=== PATIENT | female | born 1965 | race Caucasian/White ===

== ENCOUNTER 2016-07-25 13:03 | Inpatient (IN) | payer OTHER ==
[~2016-07-25] VITALS: Ht 157.5 cm; Wt 59.8 kg
[2016-08-08] MEDS ORDERED: HYDR-3516 PO (10:16)
[2016-08-08] MEDS ORDERED: VITA100T15 PO (10:16)
[2016-08-08] MEDS ORDERED: CHEL50TA PO (10:16)
[2016-08-08] MEDS ORDERED: SELE50TA PO (10:16)
[2016-08-08] MEDS ORDERED: CAL-500T PO (10:16)
[2016-08-08] MEDS ORDERED: TARTCAP PO (10:16)
[2016-08-08] MEDS ORDERED: ATEN25TA PO (10:16)
[2016-08-08] MEDS ORDERED: OMEG100010 PO (10:16)
[2016-08-08] MEDS ORDERED: PYRI1TAB2 PO (10:16)
[2016-08-08] MEDS ORDERED: FOLI1TAB4 PO (10:16)
[2016-08-08] MEDS ORDERED: OXYC1TAB63 PO (10:16)
[2016-08-08] MEDS ORDERED: VITA10003 PO (10:16)
[2016-08-15 07:43] VITALS: BP 122/75; PULSE 75; RESP 16; TEMP 98.1; O2SAT 100
[2016-08-15] MEDS ORDERED: SUGAMMADEX SODIUM 200 MG/2 ML VIAL IV PUSH ONE ×2 (07:47)
[2016-08-15] MEDS ORDERED: ACETAMINOPHEN 1000 MG/100 ML VIAL IV ONE (07:47)
[2016-08-15] MEDS ORDERED: LACTATED RINGER'S 1000 ML INJ 1,000 ML ONE (08:03)
--- NOTE | 2016-08-15 08:13 | PD.HP.UP ---
H&P Update Note The Pre-Admit History and Physical Examination regarding the above named patient was reviewed (including, but not limited to, vital signs, heart, lungs, co-morbid conditions), and upon re-examination it is noted that: the patient's condition has not significantly changed since the last examination. Guadalupe Mcghee MD Aug 15, 2016 08:13
[2016-08-15] MEDS ORDERED: ceFAZolin INJ 1,000 MG VIAL ONE (08:15)
[2016-08-15] MEDS ORDERED: metroNIDAZOLE 500 MG INJ 100 ML IV ONE (08:15)
[2016-08-15] MEDS ORDERED: ePHEDrine/NS 25 MG/5 ML SYR IV ONE (08:16)
[2016-08-15] MEDS ORDERED: PROPOFOL 200 MG/20 ML AMP IV ONE (08:16)
[2016-08-15] MEDS ORDERED: LACTATED RINGER'S 1000 ML INJ 1,000 ML IV ONE (08:17)
[2016-08-15] MEDS ORDERED: NORMOSOL R INJ 1,000 ML IV ONE (08:17)
[2016-08-15] MEDS ORDERED: ONDANSETRON HCL 4 MG/2 ML VIAL IV PUSH ONE (08:17)
[2016-08-15] MEDS ORDERED: APREPITANT 40 MG CAP ONE (08:20)
[2016-08-15] MEDS ORDERED: FAMOTIDINE 20 MG/2 ML VIAL ONE (08:20)
[2016-08-15] MEDS ORDERED: HYDROmorphone HCL PF 2 MG/ML VIAL ONE (08:20)
[2016-08-15] MEDS ORDERED: ceFAZolin INJ 1,000 MG VIAL IV ONE ×2 (08:50→12:50)
--- NOTE | 2016-08-15 09:27 | PD.OP ---
Operative Report Date of Surgery: Aug 15, 2016 Preoperative Diagnosis: Rectal Cancer Postoperative Diagnosis: Same Procedure: Cystoscopy and bilateral ureteral catheter placement Anesthesia: Gen. endotracheal tube Surgeon: Abdon Osman Cash Posting Clerk(s): None Resident Surgeon: None Operation and Findings: Patient was brought to the operating room and inform us of the Miriam Cotton. 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 22 Slovak cystoscope was inserted in bladder klein cystoscopy did not reveal any abnormalities. Left ureteral orifice was identified and a 5 Slovak open-ended catheter inserted into the left ureteral orifice without difficulty. This was again repeated on the right side. A 16 Slovak Ryan was then inserted the catheters were attached to the Ryan catheter. She tolerated the procedure well. Abdon Osman DO Aug 15, 2016 09:27
[2016-08-15] MEDS ORDERED: DO NOT ADM ANY ANTICOAGULANT DRUGS XX PRN (14:25)
[2016-08-15] MEDS ORDERED: POTASSIUM CHLOR 20 MEQ PREMIX 100 ML IV PRN (14:30)
[2016-08-15] MEDS ORDERED: ENALAPRILAT 2.5 MG/2 ML VIAL IV PRN (14:30)
[2016-08-15] MEDS ORDERED: ENALAPRILAT 1.25 MG/ML VIAL IV PRN (14:30)
[2016-08-15] MEDS ORDERED: NALOXONE HCL 0.4 MG/ML AMP IV PRN (14:30)
[2016-08-15] MEDS ORDERED: ONDANSETRON HCL 4 MG/2 ML VIAL IV PRN (14:30)
[2016-08-15] MEDS ORDERED: SODIUM CHLORIDE 0.9% FLUSH 5 ML FLUSH IVF PRN (14:30)
[2016-08-15] MEDS ORDERED: *morphine SULFATE 8 MG/ML PERIprocedure ONLY ONE (14:30)
[2016-08-15] MEDS ORDERED: POTASSIUM CHLOR 40 MEQ PREMIX 100 ML IV PRN (14:30)
[2016-08-15] MEDS ORDERED: ACETAMINOPHEN 325 MG TAB PO PRN (14:30)
[2016-08-15] MEDS ORDERED: BENZOCAINE 6 MG/MENTHOL 10 MG LOZENGE SUCK-ON PRN (14:30)
[2016-08-15] MEDS ORDERED: Post-op Orders (for Pharmacy) MISC XX ONE (14:30)
[2016-08-15] MEDS ORDERED: fentaNYL CITRATE 250 MCG/5 ML AMP ONE ×2 (14:34→14:35)
[2016-08-15] MEDS: MORPHINE SULFATE 30 MG/30 ML PCA IV SCH (14:57)
[2016-08-15] MEDS: D5-NS + KCL 20 MEQ INJ 1,000 ML IV SCH ×2 (14:59→21:31)
[2016-08-15 15:02] LABS: BASOPHIL % 0.3 % (0.0-2.0); EOSINOPHIL % 0.1 % (0.0-4.0); HEMATOCRIT 34.9 % (35.0-46.0); HEMO FLAGS DIFF FINAL; LYMPHOCYTE # 0.2 TH/MM3 (1.0-4.8); MEAN CELL VOLUME 96.1 FL (80.0-100.0); MEAN CORPUSCULAR HGB CONC 34.4 % (32.0-36.0); MONO % 3.1 % (0.0-8.0); NEUT % 93.5 % (16.0-70.0); PLATELET COUNT 214 TH/MM3 (150-450); RED BLOOD COUNT 3.63 MIL/MM3 (4.00-5.30); RED CELL DISTRIBUTION WIDTH 12.6 % (11.6-17.2); WHITE BLOOD COUNT 7.5 TH/MM3 (4.0-11.0)
[2016-08-15] MEDS: SODIUM CHLORIDE 0.9% FLUSH 5 ML FLUSH IVF SCH ×2 (15:04→21:00)
[2016-08-15 15:17] LABS: BICARBONATE 25.5 MEQ/L (21.0-32.0); POTASSIUM 3.5 MEQ/L (3.5-5.1)
[2016-08-15] MEDS: PANTOPRAZOLE SODIUM 40 MG VIAL IVP SCH (15:18)
[2016-08-15] MEDS ORDERED: *ONDANSETRON 4 MG VIAL PERIprocedural Use ONLY ONE (15:22)
[2016-08-15 15:33] LABS: CALCIUM-PROTEIN CORRECTED 8.1 MG/DL (8.5-10.1)
[2016-08-15 16:30] VITALS: BP 107/70; PULSE 87; RESP 15; TEMP 97.6; O2SAT 99
[2016-08-15] MEDS: metroNIDAZOLE 500 MG INJ 100 ML IV SCH (17:52)
[2016-08-15] MEDS: ACETAMINOPHEN/HYDROcodone 325 MG/5 MG TAB PO PRN ×2 (18:02→22:50)
[2016-08-15 19:00] VITALS: BP 107/59; PULSE 72; PULSE 82; RESP 16; TEMP 97.6; O2SAT 99
[2016-08-15] MEDS: ATENOLOL 25 MG TAB PO SCH (21:30)
[2016-08-15] MEDS: PCA - TOTAL MG MORPHINE DELIVERED PER SHIFT SCH (22:00)
[2016-08-15 23:00] VITALS: BP 100/54; PULSE 85; PULSE 86; RESP 16; TEMP 98.2; O2SAT 99
[2016-08-16] VITALS (7 sets, daily range): BP systolic 91–131; BP diastolic 56–76; PULSE 71–111; RESP 16–20; TEMP 97.7–99.5; O2SAT 97–100
[2016-08-16] MEDS: metroNIDAZOLE 500 MG INJ 100 ML IV SCH ×2 (00:47→09:56)
[2016-08-16] MEDS: D5-NS + KCL 20 MEQ INJ 1,000 ML IV SCH ×3 (04:31→17:40)
[2016-08-16] MEDS: PCA - TOTAL MG MORPHINE DELIVERED PER SHIFT SCH ×3 (05:28→22:00)
[2016-08-16] MEDS: ACETAMINOPHEN/HYDROcodone 325 MG/5 MG TAB PO PRN ×3 (05:28→20:10)
[2016-08-16] MEDS: MORPHINE SULFATE 30 MG/30 ML PCA IV SCH (05:53)
[2016-08-16 06:26] LABS: AUTOMATED NEUTROPHIL # 6.3 TH/MM3 (1.8-7.7); BASOPHIL % 0.2 % (0.0-2.0); EOSINOPHIL # 0.1 TH/MM3 (0-0.4); EOSINOPHIL % 0.8 % (0.0-4.0); HEMATOCRIT 32.7 % (35.0-46.0); HEMO FLAGS DIFF FINAL; LYMPH % 2.6 % (9.0-44.0); LYMPHOCYTE # 0.2 TH/MM3 (1.0-4.8); MEAN CELL VOLUME 98.3 FL (80.0-100.0); MEAN CORPUSCULAR HGB CONC 33.6 % (32.0-36.0); NEUT % 91.4 % (16.0-70.0); PLATELET COUNT 191 TH/MM3 (150-450); RED BLOOD COUNT 3.33 MIL/MM3 (4.00-5.30); RED CELL DISTRIBUTION WIDTH 12.8 % (11.6-17.2); WHITE BLOOD COUNT 6.9 TH/MM3 (4.0-11.0)
[2016-08-16 06:50] LABS: BICARBONATE 24.6 MEQ/L (21.0-32.0)
[2016-08-16] MEDS: SODIUM CHLORIDE 0.9% FLUSH 5 ML FLUSH IVF SCH ×2 (09:56→20:10)
[2016-08-16] MEDS: PANTOPRAZOLE SODIUM 40 MG VIAL IVP SCH (09:56)
--- NOTE | 2016-08-16 12:15 | HHI.PR ---
Subjective Remarks POD#1 s/p LAR, diverting ileo comfortable, thirsty Objective Vital Signs Date Time Temp Pulse Resp B/P Pulse Ox O2 Delivery O2 Flow Rate FiO2 08/16/16 07:00 71 08/16/16 07:00 98.8 71 20 91/56 97 08/16/16 05:53 16 08/16/16 05:28 20 08/16/16 04:30 99 21 08/16/16 03:00 97.7 91 16 102/60 98 08/16/16 03:00 74 08/15/16 23:00 86 08/15/16 23:00 98.2 85 16 100/54 99 08/15/16 22:00 16 08/15/16 19:00 97.6 82 16 107/59 99 08/15/16 19:00 72 08/15/16 16:30 87 08/15/16 16:30 97.6 87 15 107/70 99 08/15/16 16:00 97.7 72 13 111/71 100 Nasal Cannula 2 08/15/16 15:30 92 14 121/69 100 Nasal Cannula 2 08/15/16 15:15 79 13 119/69 100 Nasal Cannula 2 08/15/16 15:00 79 12 127/76 100 Nasal Cannula 2 08/15/16 14:57 15 08/15/16 14:45 90 17 119/66 99 Nasal Cannula 2 08/15/16 14:30 88 16 120/71 99 Nasal Cannula 2 08/15/16 14:20 97.5 64 15 125/73 95 Nasal Cannula 2 I/O 08/15/16 08/15/16 08/15/16 08/16/16 08/16/16 08/16/16 07:00 15:00 23:00 07:00 15:00 23:00 Intake Total 4300 ml 827 ml 3187 ml Output Total 550 ml 300 ml 535 ml Balance 3750 ml 527 ml 2652 ml Intake Oral 960 ml IV Total 827 ml 2227 ml Other 4300 ml Output Urine Total 300 ml 525 ml Stool Total 0 ml 10 ml Estimated Blood Loss 150 ml Other 400 ml # Bowel Movements 0 Result Diagram: 08/16/1614 08/16/16613 Objective Remarks Abdomen soft, mild distension, tender Ileostomy pink Dressings c/d/i Assessment and Plan Assessment and Plan Transfer to [facility] [employer] Go slow with PO Guadalupe Mcghee MD Aug 16, 2016 12:15
[2016-08-16] MEDS: HEPARIN SODIUM - SQ 10,000 UNITS/ML VIAL SQ SCH (15:43)
[2016-08-16] MEDS ORDERED: SIMETHICONE 125 MG CHEWABLE TAB PO PRN (16:30)
[2016-08-16] MEDS: ATENOLOL 25 MG TAB PO SCH (20:10)
[2016-08-17] VITALS (7 sets, daily range): BP systolic 124–137; BP diastolic 72–87; PULSE 88–107; RESP 16–20; TEMP 97.5–98.9; O2SAT 98–100
[2016-08-17] MEDS: D5-NS + KCL 20 MEQ INJ 1,000 ML IV SCH ×3 (00:20→13:28)
[2016-08-17] MEDS: HEPARIN SODIUM - SQ 10,000 UNITS/ML VIAL SQ SCH ×2 (02:00→14:43)
[2016-08-17] MEDS: ACETAMINOPHEN/HYDROcodone 325 MG/5 MG TAB PO PRN ×5 (02:30→20:55)
[2016-08-17] MEDS: PCA - TOTAL MG MORPHINE DELIVERED PER SHIFT SCH (05:23)
[2016-08-17 08:14] LABS: AUTOMATED NEUTROPHIL # 5.5 TH/MM3 (1.8-7.7); BASOPHIL % 0.3 % (0.0-2.0); EOSINOPHIL # 0.2 TH/MM3 (0-0.4); EOSINOPHIL % 2.4 % (0.0-4.0); HEMATOCRIT 35.5 % (35.0-46.0); HEMO FLAGS DIFF FINAL; LYMPH % 5.3 % (9.0-44.0); LYMPHOCYTE # 0.3 TH/MM3 (1.0-4.8); MEAN CELL VOLUME 97.6 FL (80.0-100.0); MEAN CORPUSCULAR HGB CONC 33.8 % (32.0-36.0); MONO % 6.6 % (0.0-8.0); NEUT % 85.4 % (16.0-70.0); PLATELET COUNT 222 TH/MM3 (150-450); RED BLOOD COUNT 3.64 MIL/MM3 (4.00-5.30); RED CELL DISTRIBUTION WIDTH 12.7 % (11.6-17.2); WHITE BLOOD COUNT 6.4 TH/MM3 (4.0-11.0)
[2016-08-17] MEDS: PANTOPRAZOLE SODIUM 40 MG VIAL IVP SCH (09:56)
[2016-08-17] MEDS: SODIUM CHLORIDE 0.9% FLUSH 5 ML FLUSH IVF SCH ×2 (09:56→20:57)
--- NOTE | 2016-08-17 13:15 | HHI.PR ---
Subjective Remarks POD#2 s/p LAR, diverting ileo comfortable Objective Vital Signs Date Time Temp Pulse Resp B/P Pulse Ox O2 Delivery O2 Flow Rate FiO2 08/17/16 13:06 97.8 92 18 127/75 100 08/17/16 12:20 97.9 95 18 124/76 100 08/17/16 09:03 98.4 98 16 128/87 99 08/17/16 03:00 98.9 95 16 133/72 98 08/17/16 03:00 88 08/16/16 23:00 99.1 101 20 125/76 98 08/16/16 23:00 94 08/16/16 21:06 21 08/16/16 19:00 99.5 110 20 131/71 98 08/16/16 19:00 111 08/16/16 15:00 100 08/16/16 15:00 99.0 100 20 119/69 99 08/16/16 14:00 20 I/O 08/16/16 08/16/16 08/16/16 08/17/16 08/17/16 08/17/16 07:00 15:00 23:00 07:00 15:00 23:00 Intake Total 3187 ml 2321 ml 870 ml Output Total 535 ml 2300 ml 2535 ml 1270 ml Balance 2652 ml 21 ml -1665 ml -1270 ml Intake Oral 960 ml 500 ml 720 ml IV Total 2227 ml 1821 ml 150 ml Output Urine Total 525 ml 2250 ml 2475 ml 1200 ml Stool Total 10 ml 50 ml 60 ml 70 ml # Bowel Movements 0 0 0 Result Diagram: 08/17/16 0752 08/17/16 0752 Objective Remarks Abdomen soft, mild distension, tender Ileostomy pink wounds clean Assessment and Plan Assessment and Plan 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
--- NOTE | 2016-08-17 15:22 | EKG ---
Date Performed: 08/16/2016 Time Performed: 15:38:00 PTAGE: 51 years EKG: Sinus tachycardia Anterior T wave changes are nonspecific Low QRS voltages in precordial le ads Slight ST changes more prominent from the prior tracing Borderline ECG PREVIOUS TRACING : 08/08/2016 10.06 DOCTOR: Pierre Mckeon Interpretating Date/Time 08/17/2016 15:22:16
[2016-08-17] MEDS: ATENOLOL 25 MG TAB PO SCH (20:54)
[2016-08-18] VITALS: BP 113/68; PULSE 82; RESP 18; TEMP 97.4; O2SAT 98
[2016-08-18] MEDS: ACETAMINOPHEN/HYDROcodone 325 MG/5 MG TAB PO PRN ×7 (00:11→21:13)
[2016-08-18] MEDS: HEPARIN SODIUM - SQ 10,000 UNITS/ML VIAL SQ SCH ×2 (02:35→13:02)
[2016-08-18 05:24] LABS: AUTOMATED NEUTROPHIL # 3.3 TH/MM3 (1.8-7.7); BASOPHIL % 0.4 % (0.0-2.0); EOSINOPHIL # 0.2 TH/MM3 (0-0.4); EOSINOPHIL % 5.1 % (0.0-4.0); HEMATOCRIT 31.1 % (35.0-46.0); HEMO FLAGS DIFF FINAL; LYMPH % 8.7 % (9.0-44.0); LYMPHOCYTE # 0.4 TH/MM3 (1.0-4.8); MEAN CELL VOLUME 96.8 FL (80.0-100.0); MEAN CORPUSCULAR HEMOGLOBIN 33.3 PG (27.0-34.0); MEAN CORPUSCULAR HGB CONC 34.4 % (32.0-36.0); MONO % 7.3 % (0.0-8.0); NEUT % 78.5 % (16.0-70.0); PLATELET COUNT 212 TH/MM3 (150-450); RED BLOOD COUNT 3.21 MIL/MM3 (4.00-5.30); RED CELL DISTRIBUTION WIDTH 12.1 % (11.6-17.2); WHITE BLOOD COUNT 4.2 TH/MM3 (4.0-11.0)
[2016-08-18 05:44] LABS: BICARBONATE 26.5 MEQ/L (21.0-32.0); POTASSIUM 3.6 MEQ/L (3.5-5.1)
[2016-08-18 08:00] VITALS: BP 107/69; PULSE 80; RESP 16; TEMP 97.3; O2SAT 97
[2016-08-18 09:20] VITALS: O2SAT 98
[2016-08-18] MEDS: PANTOPRAZOLE SODIUM 40 MG VIAL IVP SCH (09:43)
[2016-08-18] MEDS: SODIUM CHLORIDE 0.9% FLUSH 5 ML FLUSH IVF SCH ×2 (09:56→21:00)
[2016-08-18 12:00] VITALS: BP 126/74; PULSE 96; RESP 16; TEMP 97.4; O2SAT 100
[2016-08-18] MEDS: D5-NS + KCL 20 MEQ INJ 1,000 ML IV SCH (13:02)
--- NOTE | 2016-08-18 13:11 | HHI.PR ---
Subjective Remarks POD#3 s/p LAR, diverting ileo comfortable Objective Vital Signs Date Time Temp Pulse Resp B/P Pulse Ox O2 Delivery O2 Flow Rate FiO2 08/18/16 12:00 97.4 96 16 126/74 100 08/18/16 09:20 98 21 08/18/16 08:00 97.3 80 16 107/69 97 08/18/16 00:00 97.4 82 18 113/68 98 08/17/16 20:00 97.5 93 18 137/75 100 08/17/16 18:29 18 08/17/16 17:51 98 21 08/17/16 16:00 98.2 107 20 128/83 100 I/O 08/17/16 08/17/16 08/17/16 08/18/16 08/18/16 08/18/16 07:00 15:00 23:00 07:00 15:00 23:00 Intake Total 870 ml 800 ml 500 ml 331 ml 160 ml Output Total 2535 ml 1570 ml 900 ml 300 ml Balance -1665 ml -770 ml -400 ml 31 ml 160 ml Intake Oral 720 ml 800 ml 240 ml 120 ml IV Total 150 ml 260 ml 211 ml 160 ml Output Urine Total 2475 ml 1500 ml 850 ml 300 ml Stool Total 60 ml 70 ml 50 ml # Bowel Movements 0 0 Result Diagram: 08/18/16 0449 08/18/16 0449 Objective Remarks Abdomen soft, mild distension, tender Ileostomy pink wounds clean Assessment and Plan Assessment and Plan Advance diet D/C planning Guadalupe Mcghee MD Aug 18, 2016 13:11
[2016-08-18 16:00] VITALS: BP 116/65; PULSE 80; RESP 16; TEMP 96.4; O2SAT 99
[2016-08-18 20:00] VITALS: BP 131/66; PULSE 96; RESP 20; TEMP 98.2; O2SAT 98
[2016-08-18] MEDS ORDERED: diphenhydrAMINE HCL 25 MG CAP PO PRN (20:45)
[2016-08-18] MEDS: ATENOLOL 25 MG TAB PO SCH (21:13)
[2016-08-19] VITALS: BP 118/70; PULSE 72; RESP 20; TEMP 98.1; O2SAT 98
[2016-08-19] MEDS: ACETAMINOPHEN/HYDROcodone 325 MG/5 MG TAB PO PRN ×4 (03:08→15:13)
[2016-08-19] MEDS: HEPARIN SODIUM - SQ 10,000 UNITS/ML VIAL SQ SCH ×2 (03:09→12:21)
[2016-08-19 08:00] VITALS: BP 121/58; PULSE 76; RESP 16; TEMP 97.7; O2SAT 97
[2016-08-19] MEDS: PANTOPRAZOLE SODIUM 40 MG VIAL IVP SCH (09:00)
[2016-08-19] MEDS: SODIUM CHLORIDE 0.9% FLUSH 5 ML FLUSH IVF SCH (09:00)
[2016-08-19 12:00] VITALS: BP 135/73; PULSE 76; RESP 18; TEMP 97.3; O2SAT 94
--- NOTE | 2016-08-19 13:09 | MP ---
cc: KIMBERLY MCGHEE M.D., DEANNA K. M.D. DATE OF SURGERY: 08/15/2016 PREOPERATIVE DIAGNOSIS 1. Rectal cancer. POSTOPERATIVE DIAGNOSIS 1. Rectal cancer. 2. Adhesions. PROCEDURE 1. Extensive laparoscopic lysis of adhesions. 2. Robotic low anterior resection. 3. Takedown of splenic flexure. 4. Diverting ileostomy. SURGEON Kevin Mcghee ASSEMBLER FITTER Jacinto ANESTHESIA General per ET tube. ESTIMATED BLOOD LOSS 100 cc OPERATIVE INDICATIONS The patient is a 51-year-old female who was recently diagnosed with rectal cancer. She underwent neoadjuvant chemotherapy and radiation and comes in today for resection. OPERATIVE FINDINGS There was no visible tumor outside the rectum itself. The rectal tumor itself was approximately 5-6 cm above the anal verge. OPERATIVE COURSE The patient was brought to the operating room and placed in the supine position. After induction of general anesthesia, the patient was placed in Jose stirrups and all bony prominences were carefully padded. Dr. Osman came in and performed cystoscopy and placement of bilateral ureteral catheters; please see his operative note for details. A site was then chosen for the camera, being located just above and to the right of the umbilicus. A 10-12 port was placed at this location, under direct vision using the laparoscope. CO2 insufflation was then undertaken and a brief abdominal survey was performed. Other than some adhesions of the omentum to the anterior abdominal wall and the sigmoid colon to the left pelvic sidewall, there was no notation of anything that would preclude the robotic approach. The remainder of the ports were then planned and placed as follows: The #1 port, which was a 10-12, was placed just inside the right anterior superior iliac spine. The #5 assist port was placed just under the right costal margin, an equal distance from the #1 and the camera port. The #3 port was placed in line with the umbilicus, in the left anterior axillary line, and the #2 port was placed in the left midclavicular line, two fingerbreadths above the umbilical line. The patient was hydroplaned with head down and slightly to the right. The small bowel was brought up and out of the pelvis. The omentum was brought up and some adhesions of the omentum to the left side of the anterior abdominal wall and left colon were dissected free using electrocautery. Eventually we were able to reverse the omentum up and above the transverse colon. With this we had good visibility into the pelvis and the small bowel came up and out and to the right nicely. The sigmoid colon was noted to be retracted down and attached to the left pelvic sidewall and folded over on itself. The robot was then docked. The sigmoid colon was retracted down and to the left. A window was then made in the peritoneum, and dissection was continued posterior to the inferior mesenteric vessels until the left ureter was clearly identified and swept away from the specimen. Dissection continued in this plane until the left side wall was reached and down onto the proximal rectum as well. At this point, after having located the left ureter, I elected to proceed with dissection of the vessels. These were dissected free just distal to the takeoff from the aorta. There were dissected free circumferentially, doubly clamped proximally, singly clamped distally, divided and ligated using Hem-o-oni clamps. Dissection then continued posterior to the inferior mesenteric vein, dissecting up to the level of the lower edge of the pancreas and laterally to the left lateral sidewall. At this point dissection continued down into the pelvis and dissection continued posteriorly to the rectosigmoid down to the level of the pelvic floor. Dissection was continued up and around the right side. The dissection then continued anteriorly going past the peritoneal reflection and dissecting free the space between the anterior rectum and the vagina. At this point the left ateral peritoneal attachments of the sigmoid colon were dissected free and the rectosigmoid colon was straightened out, meeting our previous dissection from below. The dissection continued down and around posteriorly and midway up the descending colon. At this point a finger was placed in the rectum to evaluate whether or not I was able to dissect down past level of the tumor. Unfortunately posteriorly my dissection on the left was still not quite low enough. So dissection continued down to the level below the tumor. At this point the tumor was noted to be quite low but we were able to dissect freely down below it and free the distal rectum from the pelvic floor laterally, posteriorly and anteriorly until we had fairly good window. The da Eduardo stapler was brought onto the field and a blue load was placed across the bowel and the bowel was stapled and divided as far distal to the tumor as we could possibly go. It was necessary to use four reloads of the stapler to amputate the bowel, most likely due to the extreme angle of the deep dissection. At this point I elected to use a 29 EEA stapler. This was placed into the anus gently and advanced to the rectal stump by myself. A few strands of fibrofatty tissue were cleared off circumferentially until we had a good clean rim for the anastomosis. At this point attention was turned to the descending colon. Dissection was continued up posterior to the descending colon, up and around the splenic flexure, freeing the distal transverse from the omentum, to allow better mobility. The inferior mesenteric vein was then divided and ligated using clamps and the mesentery was opened. This allowed plenty of mobility to get down as far to the distal pelvis as necessary. A site was then chosen for the planned diverting ileostomy, 15 cm proximal to the ileocecal valve. A window was made in the mesentery at this level, and two laparoscopic clips were applied distally, one proximally to allow proper orientation of the bowel. The robot was then undocked. A site was chosen for the ileostomy, being located one-third of the way from the umbilicus to the right anterior superior iliac spine. Due to the size of the specimen I did need to make the ileostomy site a little bit larger than I normally would. A 2 cm ellipse of skin was removed sharply and, using electrocautery, the preperitoneal fat was dissected free down to the level of the fascia. The fascia was then incised using electrocautery and the fibers of the rectus abdominis muscle were then gently teased apart. The posterior fascia/peritoneum was then excised the length of the fascial incision and the opening was then gently widened until it would easily allow two fingers without any difficulty. The distal stapled end of the bowel was then grasped and gently pulled up and out through the ileostomy site. A site was then chosen for proximal division of the bowel, just above the area of the inflamed bowel that had been stuck down to the left pelvic sidewall, and where it came down nicely to the pubic tubercle. The mesentery at this level was serially divided and ligated using 0 Vicryl ties, and a pursestring stapling device was placed across the bowel at this level. The anterior bowel was then taken to a back table where it was opened and was noted to have about a 1 to 1.5 cm margin distal to the tumor. With the additional margin that we would get from the stapler I felt that this was adequate, especially in light of the fact that no further distal dissection would be possible due to the extreme distal aspect of the tumor. The anvil from the 29 EEA stapler was then placed into the cut end of the bowel and the previously placed pursestring suture was then secured. This was then gently reduced back into the peritoneal cavity and the fascia at the ileostomy site was closed in a running fashion using #1 PDS. An opSite was then placed across the incision and CO2 insufflation was resumed. The laparoscope was then brought onto the field, placed into the peritoneal cavity and the pelvis looked clean. The 29 EEA stapler was then advanced gently through the anus and was immediately of course at the staple line. The spike was advanced just posterior to the staple line. The anvil was then into the spike and lay nicely, without twisting and without tension. The stapler was then closed, held for 30 seconds, fired and removed, thus creating an enteroenterotomy. The distal margin was then sent for specimen along with the rectosigmoid. The anastomosis lay in a nice orientation without tension. A small amount of warm normal saline was placed into the pelvis and digital pressure was held proximally while air was insufflated into the rectum, until gentle tension was noted on the anastomosis with no sign of any leakage noted. The air was desufflated to the extent possible and the saline was suctioned out of the pelvis. The bowel lay nicely in a nice orientation. The fascia at the right lower quadrant and umbilical 10-12 trocar sites was then closed using the CrossBow device and 0 Vicryl suture. Kelly was then dusted in the pelvis. The previous incision at the ileostomy site was then opened. The fascia was then tightened a bit with interrupted suture of #1 PDS both anteriorly and posteriorly until the stoma snugly fit two fingers. The previously marked loop of bowel was then gently brought up and out through the stomal aperture until the distal end was inferior and the proximal end was superior. A TX 30 stapler was placed across the bowel distally and this was fired. The bowel was then opened and matured in a typical Cynthia fashion using 3-0 Vicryl. It was necessary to tighten the edges of the skin as well, using 3-0 Vicryl. The previously placed fascial sutures were then secured. The wounds were irrigated with warm normal saline. The skin at the trocar sites was closed in an interrupted subcuticular fashion using 3-0 Vicryl. A stoma appliance and Steri-Strips were then applied. The right ureteral catheter was then removed. All sponge, needle and instrument counts were correct and the patient was returned to the post-anesthesia care in stable condition. MD MAGALY Burnham/BT /2:17 PM /12:22 PM MTDD
[2016-08-19 16:00] VITALS: BP 129/72; PULSE 76; RESP 16; TEMP 97.4; O2SAT 96
--- NOTE | 2016-08-19 17:20 | HHI.PR ---
Subjective Remarks POD#4 s/p LAR, diverting ileo comfortable, reports anterior bilateral shoulder pain Objective Vital Signs Date Time Temp Pulse Resp B/P Pulse Ox O2 Delivery O2 Flow Rate FiO2 08/19/16 16:00 97.4 76 16 129/72 96 08/19/16 12:00 97.3 76 18 135/73 94 08/19/16 08:00 97.7 76 16 121/58 97 08/19/16 00:00 98.1 72 20 118/70 98 08/18/16 20:00 98.2 96 20 131/66 98 I/O 08/18/16 08/18/16 08/18/16 08/19/16 08/19/16 08/19/16 07:00 15:00 23:00 07:00 15:00 23:00 Intake Total 331 ml 640 ml 360 ml 360 ml 1200 ml Output Total 300 ml 1600 ml 1600 ml 800 ml 1750 ml Balance 31 ml -960 ml -1240 ml -440 ml -550 ml Intake Oral 120 ml 480 ml 360 ml 360 ml 1200 ml IV Total 211 ml 160 ml Output Urine Total 300 ml 1100 ml 1550 ml 700 ml 1600 ml Stool Total 500 ml 50 ml 100 ml 150 ml # Bowel Movements 0 Result Diagram: 08/18/16 0449 08/18/16 0449 Objective Remarks Abdomen soft, mild distension, tender Ileostomy pink wounds clean Assessment and Plan Assessment and Plan Home today, with [facility] Followup with me 3 weeks Guadalupe Mcghee MD Aug 19, 2016 17:20
[2016-08-19] MEDS ORDERED: HYDR-3516 PO (17:25)
--- NOTE | 2016-08-27 13:30 | MD ---
cc: KIMBERLY HOSKINS M.D. ADMISSION DATE: 08/15/2016 DISCHARGE DATE: 08/19/2016 ADMISSION DIAGNOSIS Rectal cancer DISCHARGE DIAGNOSIS Rectal cancer PROCEDURE 1. Cystoscopy with placement of bilateral ureteral catheters. 2. Laparoscopic lysis of adhesions with robotic low anterior resection, take down of the splenic flexure, and diverting ileostomy. HOSPITAL COURSE The patient is a 51-year-old female who was recently diagnosed with rectal cancer. She underwent neoadjuvant radiation with a partial dose of chemotherapy. She was admitted to the hospital on the July after an outpatient bowel prep, where she underwent the above-named procedures. Postoperatively, she did well with rapid return of bowel and bladder function. Final pathology is not available at time of discharge. MD MAGALY Burnham/CARLOS /5:29 PM /1:23 PM [place]
== END 2016-08-19 18:03 | disposition home health service (06) | DRG 331 ==
LOC: HSDI 08-15 06:23 → HCVR 08-15 17:12 → N07A 08-17 12:56
PROVIDERS: ADMIT Colon & Rectal Surgery; ATTEND Colon & Rectal Surgery
PROC: 0DBN4ZX Excision of Sigmoid Colon, Percutaneous Endoscopic Approach, Diagnostic (ICD-10-PCS; 2016-08-15)
PROC: 8E0W4CZ Robotic Assisted Procedure of Trunk Region, Percutaneous Endoscopic Approach (ICD-10-PCS; 2016-08-15)
PROC: 0TJB8ZZ Inspection of Bladder, Via Natural or Artificial Opening Endoscopic (ICD-10-PCS; 2016-08-15)
PROC: 0T9880Z Drainage of Bilateral Ureters with Drainage Device, Via Natural or Artificial Opening Endoscopic (ICD-10-PCS; 2016-08-15)
PROC: 0D1B0Z4 Bypass Ileum to Cutaneous, Open Approach (ICD-10-PCS; principal; 2016-08-15 08:24)
PROC: 0DTP4ZZ Resection of Rectum, Percutaneous Endoscopic Approach (ICD-10-PCS; 2016-08-15 08:24)
DX: C20 Malignant neoplasm of rectum (principal); Z92.3 Personal history of irradiation; Z92.21 Personal history of antineoplastic chemotherapy
CPT/HCPCS: 76937; 80048; 84155; 85025; 86850; 86900; 86901; 88305; 88309; 93005; 94150; C1765; C9113; J0131; J0690; J1170; J1644; J2270; J2405; J3010; J3480; J7120; J8501

== ENCOUNTER → 2016-08-08 | Outpatient (CLI) | payer OTHER ==
[~2016-08-08] MED LIST: ATEN25TA PO; CAL-500T PO; CHEL50TA PO; CLON.5 PO; FLAXOIL PO; FOLI1TAB4 PO; HYDR-3516 PO; OMEG100010 PO; OXYC1TAB63 PO; PYRI1TAB2 PO; SELE50TA PO; TARTCAP PO; VITA100017 PO; VITA10003 PO; VITA100T15 PO
[2016-08-08 11:03] LABS: BASOPHIL % 1.2 % (0.0-2.0); EOSINOPHIL # 0.1 TH/MM3 (0-0.4); HEMATOCRIT 41.4 % (35.0-46.0); HEMO FLAGS DIFF FINAL; LYMPH % 12.4 % (9.0-44.0); LYMPHOCYTE # 0.5 TH/MM3 (1.0-4.8); MEAN CELL VOLUME 97.2 FL (80.0-100.0); MEAN CORPUSCULAR HEMOGLOBIN 32.4 PG (27.0-34.0); MEAN CORPUSCULAR HGB CONC 33.3 % (32.0-36.0); MONO % 7.7 % (0.0-8.0); NEUT % 76.7 % (16.0-70.0); PLATELET COUNT 266 TH/MM3 (150-450); RED BLOOD COUNT 4.26 MIL/MM3 (4.00-5.30); RED CELL DISTRIBUTION WIDTH 12.2 % (11.6-17.2); WHITE BLOOD COUNT 3.9 TH/MM3 (4.0-11.0)
[2016-08-08 11:12] LABS: BACTERIA, URINE RARE /hpf; BLOOD, URINE NEG (NEG); COMMENT (UR) CULT NOT INDICATED; CULTURE IF INDICATED CULT NOT INDICATED; GLUCOSE,URINE NEG (NEG); KETONE, URINE NEG (NEG); MUCUS URINE FEW /lpf (OCC); NITRITE,URINE NEG (NEG); RENAL EPITHELIAL CELLS <1 /hpf; SQUAMOUS EPITHELIAL CELL URINE 6 /hpf (0-5); TRANSITIONAL EPI CELLS, URINE <1 /hpf; URINE COLOR YELLOW (YELLW/STRAW)
[2016-08-08 11:14] LABS: APTT (PATIENT) 28.2 SEC (24.3-30.1); INTERNATIONAL NORMALIZED RATIO 0.9 RATIO; PROTHROMBIN TIME - PATIENT 10.2 SEC (9.8-11.6)
--- NOTE | 2016-08-08 11:19 | RADRPT ---
EXAM DATE/TIME: 08/08/2016 11:01 [place] COMPARISON: No previous studies available for comparison. INDICATIONS : Evaluate for penumonia, pneumothorax, or communicable disease. Pre op for lower anterior bowel resect ion. MEDICAL HISTORY : None. SURGICAL HISTORY : None. ENCOUNTER: Initial ACUITY: 1 day PAIN SCORE: 0/10 LOCATION: chest FINDINGS: PA and lateral views of the chest demonstrate the lungs to be symmetrically aerated without evidence of mass, infiltrate or effusion. The cardiomediastinal contours are unremarkable. Osseous structure s are intact. CONCLUSION: No acute disease. Jerry Hull MD on August 08, 2016 at 11:17 Board Certified Radiologist. This report was verified electronically.
[2016-08-08 11:30] LABS: ALKALINE PHOSPHATASE 104 U/L (45-117); ALT (GPT) 42 U/L (10-53); ANION GAP 8 MEQ/L (5-15); AST (GOT) 18 U/L (15-37); BICARBONATE 28.3 MEQ/L (21.0-32.0); BLOOD UREA NITROGEN 12 MG/DL (7-18); CHLORIDE 104 MEQ/L (98-107); GLOMERULAR FILTRATION RATE 70 ML/MIN (>89); GLUCOSE,FASTING 98 MG/DL (74-99); POTASSIUM 3.6 MEQ/L (3.5-5.1); SODIUM (NA) 140 MEQ/L (136-145); TOTAL BILIRUBIN ADULT 0.6 MG/DL (0.2-1.0)
--- NOTE | 2016-08-08 15:35 | EKG ---
Date Performed: 08/08/2016 Time Performed: 10:06:37 PTAGE: 51 years EKG: Sinus rhythm NORMAL ECG PREVIOUS TRACING : 08/08/2016 10.05 Compared to prior tracing no significant change DOCTOR: Jenniffer Zamora Interpretating Date/Time 08/08/2016 15:33:27
== END ==
LOC: CPRE 09:43
PROVIDERS: ATTEND Colon & Rectal Surgery
DX: Z01.810 Encounter for preprocedural cardiovascular examination (principal); Z01.812 Encounter for preprocedural laboratory examination; C20 Malignant neoplasm of rectum
CPT/HCPCS: 36415; 71020; 80053; 81001; 82378; 85025; 85610; 85730; 93005